=== PATIENT | female | born 1960 | race Caucasian/White ===

== ENCOUNTER 2020-05-19 17:03 | Emergency (ER) | payer OTHER ==
[~2020-05-19] VITALS: Ht 157.5 cm; Wt 49.9 kg
[~2020-05-19 17:03] MED LIST: BACTRIM DS TAB1 EACH PO; HYDROCODON-ACE1 EAC7; MS CONTIN15 MG PO; PERCOCET 5-3251 EACH PO; RANITIDINE 150150 M1 PO
[2020-05-19 17:41] LABS: ABSOLUTE NEUTROPHILS 11.2 thou/uL (1.4-8.2); BASOPHILS 1.4 % (0.0-2.0); EOSINOPHILS 1.1 % (0.0-3.0); HEMATOCRIT 36.4 % (37.0-47.0); LYMPHOCYTES 16.1 % (24.0-44.0); MCHC 32.9 g/dL (28.0-37.0); MCV 91.1 fL (80.0-100.0); MONOCYTES 4.9 % (1.0-8.0); PLATELET COUNT 147 thou/uL (150-400); POLYS 76.5 % (36.0-66.0); RDW 14.9 % (10.5-14.5); WBC 14.7 thou/uL (4.0-11.0)
[2020-05-19 17:48] LABS: CALCIUM 8.9 mg/dL (8.5-10.1); CREATININE 0.9 mg/dL (0.6-1.0); POTASSIUM 4.1 mmol/L (3.5-5.1)
[2020-05-19 17:54] LABS: TOTAL BILIRUBIN 0.3 mg/dL (0.2-1.0); TOTAL PROTEIN 7.3 g/dL (6.4-8.2)
[2020-05-19] MEDS ORDERED: ONDANSETRON HCL4 M2 PO (20:52)
[2020-05-19 21:30] LABS: URINE BILIRUBIN NEGATIVE (Negative); URINE BLOOD NEGATIVE (Negative); URINE CLARITY CLEAR; URINE COLOR YELLOW; URINE GLUCOSE-RANDOM* NEGATIVE (Negative); URINE KETONES NEGATIVE (Negative); URINE LEUKOCYTES-REFLEX TRACE (Negative); URINE PROTEIN (DIPSTICK) NEGATIVE (Negative); URINE SPECIFIC GRAVITY <= 1.005 (1.005-1.035); URINE UROBILINOGEN 0.2 E.U./dl (0.2-1.0)
[2020-05-19 21:40] LABS: AMP/METHAMP Negative (Negative); BARBITURATES Negative (Negative); BENZODIAZEPINES Negative (Negative); COCAINE Negative (Negative); METHADONE Negative (Negative); OPIATES POSITIVE (Negative); PCP Negative (Negative)
[2020-05-19 21:48] LABS: URINE NITRITE-REFLEX POSITIVE (Negative)
[2020-05-19] MEDS ORDERED: MACROBID 100 M100 MG PO (21:49)
[2020-05-19 21:50] LABS: CASTS None Seen /LPF (None Seen); CRYSTALS None Seen /LPF (None Seen); MUCUS None Seen strn/LPF (None Seen); SQUAMOUS 0-3 Few /LPF (0-3); URINE RBC 0-2 Rare /HPF (0-2); URINE WBC-REFLEX 0-5 Rare /HPF (0-5)
[2020-05-19 22:01] VITALS: BP 123/55
== END 2020-05-19 22:02 | disposition home or self-care (01) ==
LOC: ER 17:03
PROVIDERS: Physician Assistant
DX: K86.1 Other chronic pancreatitis (principal); F10.920 Alcohol use, unspecified with intoxication, uncomplicated; N39.0 Urinary tract infection, site not specified; F17.210 Nicotine dependence, cigarettes, uncomplicated; Z90.49 Acquired absence of other specified parts of digestive tract; Z93.4 Other artificial openings of gastrointestinal tract status; Z79.899 Other long term (current) drug therapy; Z88.0 Allergy status to penicillin; Z88.8 Allergy status to other drugs, medicaments and biological substances; Y90.7 Blood alcohol level of 200-239 mg/100 ml

== ENCOUNTER 2020-07-28 16:44 | Emergency (ER) | payer OTHER ==
[~2020-07-28] VITALS: Ht 157.5 cm; Wt 54.4 kg
[~2020-07-28 16:44] MED LIST changes: +MACROBID 100 M100 MG PO; +ONDANSETRON HCL4 M2 PO
[2020-07-28 16:45] VITALS: BP 111/51
== END 2020-07-28 20:20 | disposition left against medical advice (07) ==
LOC: ER 16:44
DX: K92.2 Gastrointestinal hemorrhage, unspecified (principal); R11.0 Nausea; R31.9 Hematuria, unspecified; Z53.21 Procedure and treatment not carried out due to patient leaving prior to being seen by health care provider

== ENCOUNTER 2021-03-23 19:27 | Emergency (ER) | payer OTHER ==
[~2021-03-23] VITALS: Ht 157.5 cm; Wt 52.2 kg
[2021-03-23 19:28] VITALS: BP 139/67
[2021-03-23 20:35] LABS: ABSOLUTE NEUTROPHILS 8.5 thou/uL (1.4-8.2); BASOPHILS 0.8 % (0.0-2.0); EOSINOPHILS 1.3 % (0.0-3.0); HEMATOCRIT 33.5 % (37.0-47.0); HEMOGLOBIN 11.1 gm/dL (12.0-15.0); LYMPHOCYTES 15.9 % (24.0-44.0); MCH 31.3 pg (26.0-34.0); MCHC 33.3 g/dL (28.0-37.0); MCV 93.9 fL (80.0-100.0); PLATELET COUNT 123 thou/uL (150-400); RBC 3.56 mil/uL (4.20-5.00); RDW 14.8 % (10.5-14.5); WBC 11.4 thou/uL (4.0-11.0)
[2021-03-23 20:45] LABS: CALCIUM 8.7 mg/dL (8.5-10.1); CREATININE 1.4 mg/dL (0.6-1.0); POTASSIUM 4.4 mmol/L (3.5-5.1)
[2021-03-23 20:59] LABS: ALBUMIN 3.6 g/dL (3.4-5.0); TOTAL BILIRUBIN 0.1 mg/dL (0.2-1.0); TOTAL PROTEIN 6.9 g/dL (6.4-8.2)
[2021-03-23] MEDS ORDERED: ONDANSETRON HCL4 M2 PO (22:07)
[2021-03-23] MEDS ORDERED: NORCO5 PO (22:07)
[2021-03-23 22:38] LABS: URINE BILIRUBIN NEGATIVE (Negative); URINE BLOOD NEGATIVE (Negative); URINE CLARITY CLEAR; URINE COLOR YELLOW; URINE GLUCOSE-RANDOM* NEGATIVE (Negative); URINE KETONES NEGATIVE (Negative); URINE LEUKOCYTES-REFLEX TRACE (Negative); URINE PROTEIN (DIPSTICK) NEGATIVE (Negative); URINE SPECIFIC GRAVITY <= 1.005 (1.005-1.035); URINE UROBILINOGEN 0.2 E.U./dl (0.2-1.0)
[2021-03-23 22:39] LABS: URINE NITRITE-REFLEX POSITIVE (Negative)
[2021-03-23 22:44] LABS: SQUAMOUS 4-10 Moderate /LPF (0-3)
[2021-03-23 22:45] LABS: CASTS None Seen /LPF (None Seen); CRYSTALS None Seen /LPF (None Seen); MUCUS 0-3 Light strn/LPF (None Seen); URINE RBC 1-2 Rare /HPF (NONE SEEN); URINE WBC-REFLEX 0-5 Rare /HPF (0-5)
[2021-03-23] MEDS ORDERED: CEPHALEXIN500 MG PO (22:48)
--- NOTE | 2021-03-24 07:17 | EKG ---
[place] [address] [employer] [place] [place] [id number] ELECTROCARDIOGRAM REPORT Name: IFTO RANDHAWA [id number] Admission: 03/23/21 Attend Phys: Discharge: 03/23/21 Date of : 62 Report #: [id number] [facility] ED Test Date: 2021-03-23 Test Time: 20:58:06 Pat Name: FITO RANDHAWA Department: Room: Gender: F Decatizer: magnus michelle : 1960 Requested By: Nara Linda Order Number: [id number] MD: Leonel Jackson Measurements Intervals [place] Rate: 80 P: 32 DE: 154 QRS: 2 QRSD: 90 T: 67 QT: 387 QTc: 447 Interpretive Statements Sinus rhythm Baseline wander in lead(s) V3 Compared to ECG 08/08/2012 06:59:30 No significant changes Electronically Signed On 03-24-2021 7:16:59 CDT by Leonel Jackson [email or web address] <ELECTRONICALLY SIGNED> By: Leonel Jackson MD, [facility] 03/24/21715 57 57 Leonel Jackson MD, FACC /EPI
[2021-03-24] MEDS ORDERED: NORCO5 PO (15:12)
== END 2021-03-23 23:23 | disposition home or self-care (01) ==
LOC: ER 19:27
PROVIDERS: Physician Assistant
DX: K86.1 Other chronic pancreatitis (principal); Z88.0 Allergy status to penicillin; F17.210 Nicotine dependence, cigarettes, uncomplicated; Z88.8 Allergy status to other drugs, medicaments and biological substances